=== PATIENT | female | born 1985 | race Caucasian/White ===

== ENCOUNTER 2018-12-26 11:07 | Outpatient (CLI) | payer OTHER ==
[~2018-12-26] VITALS: Ht 154.9 cm; Wt 75.3 kg
[~2018-12-26 11:07] MED LIST: FER325 PO; PREN1TAB31 PO
[2018-12-26 11:10] VITALS: BP 98/55; PULSE 88; RESP 18; Ht 154.9 cm; Wt 75.3 kg
[2018-12-26] MEDS ORDERED: ACETAMINOPHEN 325 MG TAB PO ONE (14:10)
[2018-12-26] MEDS ORDERED: LACTATED RINGER'S 1,000 ML IV SCH (14:11)
--- NOTE | 2018-12-26 19:47 | TRIAGE ---
OB Triage Datetime Report Generated by CPN: 12/26/2018 19:47 Datetime: 12/26/2018 17:52 Labor Evaluation Frequency: none Monitor Mode: External Resting Tone [place]: Relaxed Heart Rate FHR Baseline Rate: 130 Monitor Mode: External US FHR Baseline Changes: No Baseline Change Variability: Moderate 6-25 bpm Accelerations: 15X15 Decelerations: None Category: Category I Datetime: 12/26/2018 17:01 Labor Evaluation Frequency: x1 Monitor Mode: External Duration (sec)2399: 50 Quality: Mild Resting Tone [place]: Relaxed Heart Rate FHR Baseline Rate: 130 Monitor Mode: External US FHR Baseline Changes: No Baseline Change Variability: Moderate 6-25 bpm Accelerations: 15X15 Decelerations: None Category: Category I Datetime: 12/26/2018 16:08 Labor Evaluation Frequency: x2 Monitor Mode: External Duration (sec)2399: 50-60 Quality: Mild Resting Tone [place]: Relaxed Heart Rate FHR Baseline Rate: 125 Monitor Mode: External US FHR Baseline Changes: No Baseline Change Variability: Moderate 6-25 bpm Accelerations: 15X15 Decelerations: None Category: Category I Datetime: 12/26/2018 15:55 Pain Assessment Pain Scale: 8 Pain Presence: Constant Pain Type: Ache Pain Location: Head Pain Relief Measures: Comfort Measures Datetime: 12/26/2018 15:13 Labor Evaluation Frequency: none Monitor Mode: External Resting Tone [place]: Relaxed Contraction Comments: uterine irritability noted Heart Rate FHR Baseline Rate: 130 Monitor Mode: External US FHR Baseline Changes: No Baseline Change Variability: Moderate 6-25 bpm Accelerations: 15X15 Decelerations: None Category: Category I Datetime: 12/26/2018 14:15 Labor Evaluation Frequency: none Monitor Mode: External Resting Tone [place]: Relaxed Heart Rate FHR Baseline Rate: 130 Monitor Mode: External US FHR Baseline Changes: No Baseline Change Variability: Moderate 6-25 bpm Accelerations: 15X15 Decelerations: None Category: Category I Datetime: 12/26/2018 13:15 Labor Evaluation Frequency: none Monitor Mode: External Resting Tone [place]: Relaxed Heart Rate FHR Baseline Rate: 140 Monitor Mode: External US FHR Baseline Changes: No Baseline Change Variability: Moderate 6-25 bpm Accelerations: 15X15 Decelerations: None Category: Category I Datetime: 12/26/2018 12:15 Labor Evaluation Frequency: irregular Monitor Mode: External Duration (sec)2399: 50-60 Quality: Mild Resting Tone [place]: Relaxed Contraction Comments: uterine irritability noted Heart Rate FHR Baseline Rate: 135 Monitor Mode: External US FHR Baseline Changes: No Baseline Change Variability: Moderate 6-25 bpm Accelerations: 15X15 Decelerations: None Category: Category I Datetime: 12/26/2018 11:31 EGA: 27.2 Datetime: 12/26/2018 11:17 Stage of : OB Triage Assessment Type: Triage Maternal Assessment Level of Consciousness: Keenly Alert, Responsive DTR's/Clonus: DTRs 2+; No Clonus Headache: Denies Blurred Vision: No Respiratory Effort: Unlabored; Regular Rhythm; Equal Expansion Breath Sounds, Left: Clear and Equal Breath Sounds, Right: Clear and Equal Nausea/Vomiting: Denies RUQ Epigastric Pain: Denies Lower Extremities Edema: None Degree: None Upper Extremities Edema: None Degree: None Facial Edema: None Temperature Route: Oral Fall Risk Assessment History of Falling: (0) No Secondary Diagnosis: (0) No Ambulatory Aid: (0) Bedrest/Nurse Assist IV Therapy: (0) No Gait: (0) Normal/Bedrest/Immobile Mental Status: (0) Oriented to Own Ability Fall Score: 0 Fall Risk Score Definition: No Risk: No action required Labor Evaluation Frequency: 3-4 Monitor Mode: External Duration (sec)2399: 40-80 Quality: Mild Resting Tone [place]: Relaxed Heart Rate FHR Baseline Rate: 135 Monitor Mode: External US FHR Baseline Changes: No Baseline Change Variability: Moderate 6-25 bpm Accelerations: 15X15 Decelerations: Variable Comments: appropriate for GA Pain Assessment Pain Scale: 8 Pain Presence: Constant Pain Type: Pressure; Ache Pain Location: Head Pain Relief Measures: Comfort Measures Datetime: 12/26/2018 11:15 Time of Arrival: 12/26/2018 10:44 EGA: 25.4 Arrived By: Ambulatory Arrived From: Office Chief Complaint: headache, leaking for 2 weeks, Left calf pain, vaginal pressure. Movement: Present Contractions: Denies/Absent Rupture of Membranes: Unsure Vaginal Discharge: Denies Recent Sexual Intercouse: Denies Abdominal Trauma: Not Applicable Initial Plan: NST
--- NOTE | 2018-12-27 02:25 | PN ---
Triage Information Date/Time Late entry note for exam done for December 26, 2018 Reason for visit: Patient presented and was sent from clinic due to multiple different complaints including headache as well as leaking of fluid for 2 weeks and left leg pain, vaginal pressure and numbness of the right arm. Weeks of Gestation 25 weeks and 4 days /Para 6 para 3 Diabetes: none Hypertention: none Additional information 33-year-old G6, P3 with IUP at 25 weeks and 4 days and history of x3 was sent from clinic due to headache and leaking of fluid as well as right hand numbness and left leg pain as well as vaginal pressure. She denies any decreased movement. Reports leaking of fluid for the last 2 weeks. D enies any blurred vision, epigastric pain right upper quadrant pain. Denies any vaginal bleeding. Objective Vital Signs Date Temp Pulse Resp B/P (MAP) Pulse Ox O2 O2 Flow FiO2 Time Delivery Rate 12/26/18 98.3 88 18 98/55 (69) Room Air 11:10 Intake and Output 12/26/18 12/26/18 12/27/18 1515:00 23:00 07:00 IntakeIntake Total 1000 ml BalanceBalance 1000 ml Heart Rate: 130's Heart Rate Comments Category 1 Contractions: None Exam General appearance: Alert and oriented x4, does not appear to be in any acute distress HEENT within normal limits Abdomen: Soft, gravid, fundal height consider gestational age, no tenderness, no rebound tenderness, no guarding no rigidity Extremities: No calf tenderness, no click no edema no cord palpable negative Homans sign Neuro exam within normal limits Doppler of left lower extremity negative for DVT NST: Appropriate for gestational age Status post on examination: Negative pooling, negative quadrant test Laboratory Tests Test 12/26/18 13:10 Membranes Rupture NEGATIVE Results/Medications Results 24 hrs Laboratory Tests Test 12/26/18 13:10 Membranes Rupture NEGATIVE Imaging Results ROCEDURE: US Lower extremity Venous. CLINICAL INDICATION: Bilateral lower extremity edema TECHNIQUE: Multiple sonographic images of the bilateral lower extremity deep venous system was obtained utilizing grayscale, color-flow, compressive sonography and doppler imaging with augmentation. The images were reviewed on a PACS workstation. COMPARISON: None. FINDINGS: There is normal compressibility and flow within the right common femoral, femoral , posterior tibial and popliteal veins. There is normal compressibility and flow within the left common femoral, femoral , posterior tibial and popliteal veins. RPTAT: AA IMPRESSION: No sonographic evidence for deep venous thrombosis. PROCEDURE: US OB AND ULTRASOUND CERVIX. CLINICAL INDICATION: Size and dates , labor TECHNIQUE: Multiple sonographic images of the pelvis and gravid uterus were obtained. The images were reviewed on a PACS workstation. Transvaginal images of the cervix were also obtained. COMPARISON: No prior studies are available for comparison. FINDINGS: Cervix: Length: 3.3 cm. Closed and competent. Gestation: Single live intrauterine gestation. Cardiac activity: 140 beats per minute. Presentation: Breech Placenta: Location: Fundal Appearance: No previa or abruption. Measurements: BPD = 7.3 cm, 29 weeks and 2 days HC = 25.6 cm, 27 weeks and 6 days AC = 24.6 cm, 28 weeks and 6 days FL = 4.8 cm, 26 weeks and 0 days Gestational Age: AUA estimated gestational age: 28 weeks 0 days LMP estimated gestational age: 25 weeks 4 days AUA estimated date of delivery: 03/20/19 The EFW = 1137 g, >97%ile based on LMP age. RPTAT: AA IMPRESSION: Single live intrauterine gestation of approximately 28 weeks and 0 days based on ultrasound measurements. .Adolfo Ruth MD, MD Date Time Electronically viewed and signed by .Adolfo Ruth MD, on 12/26/2018 12:51 .S/ CC: JAILYN SPARROW [phone] PROCEDURE: US OB. CLINICAL INDICATION: Uterine contractions TECHNIQUE: Transabdominal views of the pelvis are available for review. COMPARISON: US 12/26/2018 FINDINGS: MVP = 11.04 cm. RPTAT: AA IMPRESSION: MVP = 11.04 cm. The ASHWIN was not measured. Disposition: Discharge Assessment/Plan IUP at 25 weeks and 4 days Headache, resolved with Tylenol. Right hand numbness, exam consistent with carpal tunnel syndrome due to . Patient was reassured. No neurological findings noted Left leg pain, no evidence of DVT. Doppler of lower extremity negative Leaking of fluid, no evidence of PPROM. Homans test negative. Adequate amniotic fluid noted Patient stable for discharge. Recommended follow-up within 2 to 3 days with primary OB office or sooner as needed Patient verbalized understanding. Strict labor precaution, PPROM precaution and kick count and follow-up with primary OB office within 48 hours after discharge from the hospital sooner discussed with patient. Advised to return to triage if there is any change in her symptoms were persistent and worsening of symptoms or for any other concerns. BASSAM JOSEPH MD Dec 27, 2018 02:25
== END 2018-12-26 18:16 | disposition home or self-care (01) ==
LOC: OBT 11:07 → L-D 11:08 → OBT 18:16
PROVIDERS: ATTEND Obstetrics & Gynecology
DX: O26.892 Other specified pregnancy related conditions, second trimester (principal); Z3A.25 25 weeks gestation of pregnancy; R51 Headache; R20.0 Anesthesia of skin
CPT/HCPCS: 36415; 76815; 76816; 76817; 84112; 93970; 96360; J7120; Z7500; Z7610; G0463